=== PATIENT | female | born 1955 | race Caucasian/White ===

== ENCOUNTER 2016-08-04 13:55 | Emergency (ER) | payer BC ==
[~2016-08-04] VITALS: Ht 167.6 cm; Wt 72.6 kg
[2016-08-04 14:05] VITALS: BP_SYST 121
--- NOTE | 2016-08-04 14:05 | NUR ---
Pt triaged and placed in ER waiting room. No visual deficits, no neurodefits, speech coherent, steady gait. Pt in stable condition. Dr. Rees notified.
[2016-08-04 14:54] LABS: EOSINOPHILS # (AUTO) 0.1 K/uL (0.0-0.4); EOSINOPHILS % (AUTO) 0.6 % (0.0-4.0); HEMOGLOBIN 13.4 g/dL (12.0-16.0); LYMPHOCYTES # (AUTO) 1.1 K/uL (1.0-5.5); LYMPHOCYTES % (AUTO) 11.1 % (20.5-51.5); MEAN CORPUSCULAR HEMOGLOBIN 30 pg (27-31); MEAN CORPUSCULAR HGB CONC 34 % (32-36); MEAN CORPUSCULAR VOLUME 89 fL (79.0-98.0); MONOCYTES # (AUTO) 0.5 K/uL (0.0-1.0); PLATELET COUNT (AUTO) 288 K/uL (130-430); RED BLOOD CELL COUNT(AUTO) 4.51 MIL/uL (4.2-6.2); RED CELL DISTRIBUTION WIDTH 12.6 % (9.0-15.0); WHITE BLOOD COUNT (AUTO) 9.6 K/uL (4.8-10.8)
[2016-08-04 14:57] LABS: BASOPHILS % (AUTO) 0.6 % (0.0-2.0); NEUTROPHILS % (AUTO) 82.7 % (40.0-70.0)
[2016-08-04 14:58] LABS: BASOPHILS # (AUTO) 0.1 K/uL (0.0-0.2); NEUTROPHILS # (AUTO) 7.8 K/uL (1.8-7.7)
[2016-08-04 15:00] LABS: BILIRUBIN,URINE NEGATIVE (NEGATIVE); CLARITY/URINE SL HAZY (CLEAR); COLOR,URINE YELLOW (YELLOW); GLUCOSE,URINE NEGATIVE (NEGATIVE); KETONES,URINE NEGATIVE (NEGATIVE); LEUKOCYTE ESTERASE ,URINE NEGATIVE (NEGATIVE); NITRITE, URINE NEGATIVE (NEGATIVE); PH,URINE 5.5 (5.0-8.0); PROTEIN URINE 2+ (NEGATIVE); UROBILINOGEN,URINE 0.2 (0.2-1.0)
[2016-08-04 15:05] LABS: CREATININE 1.12 mg/dL (0.55-1.30); POTASSIUM 3.5 mmol/L (3.5-5.1)
[2016-08-04 15:07] LABS: ALBUMIN 2.6 g/dL (3.4-4.8); PROTHROMBIN TIME 11.3 SECS (9.5-12.5); TOTAL BILIRUBIN 0.4 mg/dL (0.0-1.0); TOTAL PROTEIN, SERUM 8.3 g/dL (6.4-8.3)
[2016-08-04 15:15] LABS: BLOOD, URINE TRACE (NEGATIVE)
--- NOTE | 2016-08-04 15:18 | NUR ---
Patient placed in ER H for evaluation. Report given to Eli CROWE
--- NOTE | 2016-08-04 15:20 | NUR ---
Patient to ER C/O right side of the face mild numbness and tingling and right eye and eye lid droopiness for the past 2 days. Denies headache, denies N/V, walks with stable gait. no signs of acute distress
[2016-08-04 15:29] LABS: BACTERIA,URINE MODERATE /HPF (None Seen)
--- NOTE | 2016-08-04 15:34 | NUR ---
ER MD Rees evaluating the patient
[2016-08-04 16:25] VITALS: BP_SYST 120
--- NOTE | 2016-08-04 16:25 | NUR ---
Patient given written and verbal discharge instructions and verbalizes understanding. ER MD Rees discussed with patient the results and treatment provided. Patient in stable condition. ID arm band removed. Rx of macrobid 7 valacyclovir given. Patient educated on pain management and to follow up with PMD. Pain Scale 0/10. Opportunity for questions provided and answered.
== END 2016-08-04 16:25 | disposition home or self-care (01) ==
LOC: SED 13:55
DX: G51.0 Bell's palsy (principal); N39.0 Urinary tract infection, site not specified; I10 Essential (primary) hypertension; E78.00 Pure hypercholesterolemia, unspecified; Z88.0 Allergy status to penicillin
CPT/HCPCS: 36415; 70450-TC; 80053; 80061; 81000-TC; 82550-TC; 84484; 85025; 85610-TC; 85730-TC; 87086; 99285

== ENCOUNTER 2017-01-30 11:14 | Outpatient (CLI) | payer BC | END 2017-01-30 20:32 | disposition home or self-care (01) | LOC: SRD 11:14 | PROVIDERS: ATTEND Internal Medicine | DX: M19.041 Primary osteoarthritis, right hand (principal) ==

== ENCOUNTER 2017-03-26 08:47 | Emergency (ER) | payer BC ==
[~2017-03-26] VITALS: Ht 167.6 cm; Wt 72.6 kg
[2017-03-26 08:53] VITALS: BP_SYST 145
[2017-03-26 09:23] VITALS: BP_SYST 139
== END 2017-03-26 09:23 | disposition home or self-care (01) ==
LOC: SED 08:47
DX: S86.811A Strain of other muscle(s) and tendon(s) at lower leg level, right leg, initial encounter (principal); E78.00 Pure hypercholesterolemia, unspecified; Z88.0 Allergy status to penicillin; X58.XXXA Exposure to other specified factors, initial encounter; Y93.89 Activity, other specified; Y92.89 Other specified places as the place of occurrence of the external cause; Y99.2 Volunteer activity
CPT/HCPCS: 99281